=== PATIENT | male | born 1985 | race Caucasian/White ===

== ENCOUNTER 2023-02-22 08:20 | Emergency (ER) | payer MEDICAID ==
[~2023-02-22] VITALS: Ht 167.6 cm; Wt 83.9 kg
[2023-02-22 08:24] VITALS: BP 156/101
--- NOTE | 2023-02-22 08:28 | NUR ---
PT AMB W/ CRUTCHES TO BED 8.
--- NOTE | 2023-02-22 08:30 | NUR ---
37YO MALE PT C/O R KNEE PAIN XYESTERDAY. REPORTS ONSET AFTER HEARING A "POP" WHILE PLAYING SOCCER. NO VISIBLE DEFORMITY NOTED. -NUMBING OR LOSS OF SENSATION, CAP REFILL <3 THROUGHOUT EXTREMITY. STATES MILD RELIEF AFTER ADVIL. PT AAOX4, AMB USING CRUTCHES. HX:DENIES NKA
--- NOTE | 2023-02-22 08:42 | NUR ---
MD CARDENAS AT BEDSIDE FOR EVALUATION
[2023-02-22] MEDS ORDERED: IBUP-1842 PO (08:48)
[2023-02-22 10:27] VITALS: BP 138/88
--- NOTE | 2023-02-22 10:27 | NUR ---
Patient discharged with v/s stable. Written and verbal after care instructions FOR [employer] given and explained. Patient alert, oriented and verbalized understanding of instructions. Ambulatory with steady gait. All questions addressed prior to discharge. ID band removed. Patient advised to follow up with PMD. Rx of MOTRIN given. Opportunity to ask questions provided and answered.
--- NOTE | 2023-02-22 10:28 | NUR ---
The patient's care was reviewed and supervised by Celena Hawkins, RN, RN.
== END 2023-02-22 10:27 | disposition home or self-care (01) ==
LOC: MED 08:20
DX: M25.561 Pain in right knee (principal); Z79.899 Other long term (current) drug therapy
CPT/HCPCS: 29505; 73562; 99283; Q0092